=== PATIENT | female | born 1980 | race American Indian/Alaskan Native ===

== ENCOUNTER 2018-11-11 11:22 | Outpatient (CLI) | payer OTHER | END 2018-11-11 13:24 | disposition home or self-care (01) | LOC: NST 11:22 | DX: Z34.83 Encounter for supervision of other normal pregnancy, third trimester (principal) ==

== ENCOUNTER 2018-12-29 16:02 | Outpatient (CLI) | payer OTHER | END 2018-12-29 17:50 | disposition home or self-care (01) | LOC: NST 16:02 | DX: Z34.83 Encounter for supervision of other normal pregnancy, third trimester (principal) ==

== ENCOUNTER 2019-01-05 14:15 | Inpatient (IN) | payer OTHER ==
[~2019-01-05] VITALS: Ht 172.7 cm; Wt 75.3 kg
[2019-01-07] MEDS ORDERED: OBSTETRIX ONE1 EACH PO (08:10)
== END 2019-01-08 11:02 | disposition home or self-care (01) | DRG 807 ==
LOC: ADM 14:15 → EDSTATUS 14:15 → OB/GYN 01-06 06:35 → LDR 01-06 06:35 → OB/GYN 01-06 12:23
PROVIDERS: ADMIT Obstetrics & Gynecology Maternal & Fetal Medicine
PROC: 10E0XZZ Delivery of Products of Conception, External Approach (ICD-10-PCS; principal; 2019-01-06)
PROC: 4A0HXFZ Measurement of Products of Conception, Cardiac Rhythm, External Approach (ICD-10-PCS; 2019-01-06)
PROC: 0UQGXZZ Repair Vagina, External Approach (ICD-10-PCS; 2019-01-06)
DX: O71.4 Obstetric high vaginal laceration alone (principal); Z37.0 Single live birth; Z3A.38 38 weeks gestation of pregnancy